=== PATIENT | male | born 1980 | race African-American/Black ===

== ENCOUNTER 2016-06-06 20:50 | Emergency (ER) | payer MEDICAID ==
[~2016-06-06] VITALS: Ht 170.2 cm; Wt 91.0 kg
[2016-06-06] MEDS ORDERED: KETOROLAC 60MG/2ML VIAL IM ONE (22:30)
[2016-06-06] MEDS ORDERED: HYDROCODONE/APAP 7.5/325MG 1 TAB TABLET PO ONE (22:30)
[2016-06-07] MEDS ORDERED: MORPHINE SULFATE 10 MG/ML CPJ IM ONE ×2
[2016-06-07 01:17] VITALS: BP 123/81
== END 2016-06-07 01:19 | disposition home or self-care (01) ==
LOC: ER 21:17
DX: S82.831A Other fracture of upper and lower end of right fibula, initial encounter for closed fracture (principal); S93.04XA Dislocation of right ankle joint, initial encounter; F31.9 Bipolar disorder, unspecified; F32.9 Major depressive disorder, single episode, unspecified; I10 Essential (primary) hypertension; F17.200 Nicotine dependence, unspecified, uncomplicated; V98.8XXA Other specified transport accidents, initial encounter; Y93.55 Activity, bike riding; Y99.8 Other external cause status; Y92.89 Other specified places as the place of occurrence of the external cause
CPT/HCPCS: 29515; 73590; 73610; 96372; 99284; J1885; J2270; Z7610

== ENCOUNTER 2016-09-29 16:26 | Emergency (ER) | payer MEDICAID ==
[~2016-09-29] VITALS: Ht 182.9 cm; Wt 94.0 kg
[2016-09-29 16:27] VITALS: BP 133/84
== END 2016-09-29 18:35 | disposition left against medical advice (07) ==
LOC: ER 16:40
DX: Z53.21 Procedure and treatment not carried out due to patient leaving prior to being seen by health care provider (principal)

== ENCOUNTER 2020-03-23 10:51 | Emergency (ER) | payer MEDICAID ==
[~2020-03-23] VITALS: Ht 182.9 cm; Wt 100.0 kg
[2020-03-23 10:59] VITALS: BP 167/97
== END 2020-03-23 21:26 | disposition left against medical advice (07) ==
LOC: ER 10:58
DX: Z53.21 Procedure and treatment not carried out due to patient leaving prior to being seen by health care provider (principal)
CPT/HCPCS: 93005

== ENCOUNTER → 2020-08-07 | Emergency (ER) | payer MEDICAID ==
[~2020-08-07] VITALS: Ht 188 cm; Wt 100.0 kg
[~2020-08-07] MED LIST: HALOPERIDOL LACTATE 5MG/ML VIAL IM STA; LORAZEPAM 2MG/ML CPJ IM STA; SODIUM CHLORIDE 0.9% 1,000 ML IV ONE
[2020-08-07 12:11] LABS: BASOPHILS % 1.1 % (0.0-2.0); EOSINOPHILS % 1.6 % (0.0-5.0); HEMOGLOBIN. 13.1 g/dL (14.0-18.0); LYMPHOCYTES % 23.7 % (20.0-50.0); MEAN CORPUSCULAR HEMOGLOBIN 29.6 pg (28.0-32.0); MEAN CORPUSCULAR VOLUME 88.1 fL (80.0-94.0); MEAN PLATELET VOLUME 9.5 fl (7.4-10.4); MONOCYTES % 11.5 % (2.0-8.0); NEUTROPHILS % 62.1 % (40.0-76.0); PLATELET 222 x1000/uL (130-400); RED BLOOD CELL COUNT 4.43 mill/uL (4.7-6.1); RED CELL DISTRIBUTION WIDTH 15.4 % (11.6-14.6)
[2020-08-07 12:20] LABS: CHLORIDE 113 mEq/L (98-107)
[2020-08-07 12:24] LABS: ETHANOL BLOOD 73 mg/dL
[2020-08-07 15:19] LABS: CLARITY URINE CLEAR (CLEAR); COLOR URINE YELLOW (YELLOW); KETONES URINE TRACE (NEGATIVE); LEUKOCYTE ESTERASE URINE NEGATIVE (NEGATIVE); NITRITE URINE NEGATIVE (NEGATIVE); OCCULT BLOOD URINE NEGATIVE (NEGATIVE); PROTEIN URINE NEGATIVE (NEGATIVE); SPECIFIC GRAVITY URINE 1.028 (1.005-1.030); UROBILINOGEN URINE 0.2 E.U./dL (0.2-1.0)
[2020-08-07 15:38] LABS: *AMPHETAMINES SCREEN URINE NEGATIVE (NEGATIVE); *BARBITURATES SCREEN URINE NEGATIVE (NEGATIVE); *BENZODIAZEPINES SCREEN URINE NEGATIVE (NEGATIVE); *COCAINE SCREEN URINE NEGATIVE (NEGATIVE); METHADONE URINE SCREEN NEGATIVE (NEGATIVE)
[2020-08-07 15:39] LABS: CANNABINOID URINE SCREEN NEGATIVE (NEGATIVE); OPIATES URINE SCREEN NEGATIVE (NEGATIVE); PHENCYCLIDINE URINE SCREEN PRESUMTIVE POSITIVE (NEGATIVE)
[2020-08-07 16:58] VITALS: BP 123/84
== END ==
LOC: ER 11:49
DX: F10.129 Alcohol abuse with intoxication, unspecified (principal); Y90.0 Blood alcohol level of less than 20 mg/100 ml; R05 Cough; F31.9 Bipolar disorder, unspecified; F20.9 Schizophrenia, unspecified; F17.290 Nicotine dependence, other tobacco product, uncomplicated
CPT/HCPCS: 36415; 70450; 71045; 80053; 80305; 80320; 81003; 85025; 93005; 96360; 96361; 96372; 99285; J1630; J2060; J7030; G0480